=== PATIENT | female | born 1995 | race Caucasian/White ===

== ENCOUNTER 2023-09-27 12:38 | Emergency (ER) | payer SELFPAY ==
[~2023-09-27] VITALS: Ht 170.2 cm; Wt 45.0 kg
[2023-09-27 12:41] VITALS: O2SAT 98
[2023-09-27 13:29] VITALS: BP 105/55; PULSE 78; RESP 23; TEMP 98.5
[2023-09-27] MEDS ORDERED: ABIL5 MT (14:48)
== END 2023-09-27 17:00 | disposition home or self-care (01) ==
LOC: ER 13:24
DX: F19.10 Other psychoactive substance abuse, uncomplicated (principal); F41.9 Anxiety disorder, unspecified; F31.9 Bipolar disorder, unspecified; F43.10 Post-traumatic stress disorder, unspecified; F90.9 Attention-deficit hyperactivity disorder, unspecified type; Z76.0 Encounter for issue of repeat prescription
CPT/HCPCS: 99283